=== PATIENT | female | born 2005 | race Caucasian/White ===

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

== ENCOUNTER 2024-01-05 19:40 | Emergency (ER) | payer MEDICAID ==
[~2024-01-05] VITALS: Ht 165.1 cm; Wt 77.0 kg
[~2024-01-05 19:40] MED LIST changes: +CIPR1SUS8 OT
[2024-01-05 22:06] LABS: Urine Amorphous Crystal FEW /hpf (None Seen); Urine Bacteria FEW /hpf (None Seen); Urine Blood 1+ /uL (Negative); Urine Clarity Turbid (Clear); Urine Color Yellow (Yellow); Urine Mucus FEW (None Seen); Urine Protein, UAD TRACE (Negative); Urine Specific Gravity 1.027 (1.001-1.035); Urine Urobilinogen Normal (Negative); Urine WBC 24 /hpf (0 - 5)
[2024-01-05 22:12] LABS: Basophils # (auto) 0.1 10 ^3/uL (0-0.2); Basophils % (auto) 0.8 % (0.0-2.0); Eosinophils # (auto) 0.1 10 ^3/uL (0-0.8); Hematocrit 40.9 % (36.0-46.0); Hemoglobin 13.4 g/dL (12.2-16.2); Lymphocytes # (auto) 3.5 10 ^3/uL (0.4-5.4); Lymphocytes % (auto) 37.1 % (10.0-50.0); Mean Corpuscular Hemoglobin 28.7 pg (28.0-32.0); Mean Corpuscular Hgb Conc. 32.7 g/dL (32.0-36.0); Mean Corpuscular Volume 87.7 fL (80.0-100.0); Monocytes # (auto) 0.7 10 ^3/uL (0-1.3); Neutrophils # (auto) 5.1 10 ^3/uL (1.6-8.6); Neutrophils % (auto) 54.1 % (37.0-80.0); Red Blood Cells 4.67 10^6/uL (4.0-5.20); White Blood Cell 9.4 10^3/uL (4.4-10.8)
[2024-01-05 22:27] LABS: Alanine Aminotransferase 43 U/L (7-40); Albumin 4.5 g/dL (3.2-4.8); Alkaline Phosphatase 59 U/L (46-116); Anion Gap 6 (5-15); Aspartate Aminotransferase 18 U/L (13-40); BUN/Creatinine Ratio 15.3 (10.0-20.0); Bilirubin, Total 0.5 mg/dL (0.2-1.0); Blood Urea Nitrogen 11 mg/dL (9-23); Carbon Dioxide 27 mmol/L (20-30); Chloride 106 mmol/L (98-107); Glucose 81 mg/dL (74-106); Lipase 31 U/L (12-53); Potassium 3.9 mmol/L (3.5-5.1); Sodium 139 mmol/L (136-145); Total Protein 7.3 g/dL (5.7-8.2)
[2024-01-06] MEDS ORDERED: POLY335015 PO (00:18)
[2024-01-06] MEDS ORDERED: DICY10CA PO (00:18)
[2024-01-06] MEDS ORDERED: ZOFR4T PO (00:18)
[2024-01-06] MEDS ORDERED: AUG875T PO (00:18)
[2024-01-06] MEDS ORDERED: FAMO20TA10 PO (00:18)
[2024-01-06 00:25] VITALS: BP 111/71; PULSE 76; RESP 14; O2SAT 98
[2024-01-06] MEDS: ONDANSETRON ODT 4 MG TAB PO ONE (00:37)
[2024-01-06] MEDS: HYDROcodone-ACET 5/325MG TAB PO ONE (00:38)
[2024-01-06] MEDS: PANTOPRAZOLE 40 MG/10 ML VIAL INJ IV ONE (00:38)
[2024-01-06] MEDS: cefTRIAXone 1GM/50ML D5W 50 ML IV ONE (00:38)
[2024-01-06] MEDS: SODIUM CHLORIDE 0.9% 1,000 ML IV ONE (00:38)
== END 2024-01-06 00:36 | disposition home or self-care (01) ==
LOC: ER 19:40
DX: N39.0 Urinary tract infection, site not specified (principal); K29.70 Gastritis, unspecified, without bleeding; K57.90 Diverticulosis of intestine, part unspecified, without perforation or abscess without bleeding; K59.00 Constipation, unspecified; Z32.02 Encounter for pregnancy test, result negative
CPT/HCPCS: 36415; 74176; 80053; 81001; 81025; 83690; 85025

== ENCOUNTER 2024-06-25 11:59 | Emergency (ER) | payer MEDICAID ==
[~2024-06-25] VITALS: Ht 154.9 cm; Wt 79.9 kg
[~2024-06-25 11:59] MED LIST changes: +FAMO20TA10 PO; +POLY335015 PO; +ZOFR4T PO
[2024-06-25] MEDS ORDERED: AUG875T PO (13:39)
[2024-06-25] MEDS ORDERED: NAP500T GT (13:39)
[2024-06-25] MEDS: cefTRIAXone W LIDOCAINE 1 GM IM IM ONE (14:11)
[2024-06-25] MEDS: cefTRIAXone SOD 1,000 MG VL IM ONE (14:18)
[2024-06-25 14:22] VITALS: BP 138/83; PULSE 109; RESP 17; TEMP 98.1; O2SAT 98
== END 2024-06-25 14:23 | disposition home or self-care (01) ==
LOC: ER 11:59
DX: L03.115 Cellulitis of right lower limb (principal); Z79.1 Long term (current) use of non-steroidal anti-inflammatories (NSAID); Z79.52 Long term (current) use of systemic steroids
CPT/HCPCS: 96372; 99283; J0696

== ENCOUNTER 2024-07-02 11:22 | Emergency (ER) | payer MEDICAID ==
[~2024-07-02] VITALS: Ht 154.9 cm; Wt 83.9 kg
[~2024-07-02 11:22] MED LIST changes: +NAP500T GT
[2024-07-02 12:02] VITALS: BP 113/67; PULSE 116; RESP 16; TEMP 97.5; O2SAT 98
[2024-07-02 12:45] LABS: Basophils # (auto) 0.1 10 ^3/uL (0-0.2); Basophils % (auto) 0.8 % (0.0-2.0); Eosinophils # (auto) 0.2 10 ^3/uL (0-0.8); Hematocrit 41.3 % (36.0-46.0); Hemoglobin 13.9 g/dL (12.2-16.2); Lymphocytes # (auto) 2.4 10 ^3/uL (0.4-5.4); Mean Corpuscular Hemoglobin 29.8 pg (28.0-32.0); Mean Corpuscular Hgb Conc. 33.6 g/dL (32.0-36.0); Mean Corpuscular Volume 88.6 fL (80.0-100.0); Monocytes # (auto) 0.5 10 ^3/uL (0-1.3); Monocytes % (auto) 5.8 % (0.0-12.0); Neutrophils # (auto) 5.3 10 ^3/uL (1.6-8.6); Neutrophils % (auto) 62.4 % (37.0-80.0); Nucleated Red Blood Cells % 0.1 %; Platelet Count (auto) 379 10^3/uL (140-450); Red Blood Cells 4.66 10^6/uL (4.0-5.20); Red Cell Distribution Width 13.5 % (11.8-14.3); White Blood Cell 8.4 10^3/uL (4.4-10.8)
[2024-07-02 12:54] LABS: Chloride 109 mmol/L (98-107); Potassium 4.4 mmol/L (3.5-5.1); Sodium 139 mmol/L (136-145)
[2024-07-02 12:55] LABS: Anion Gap 5 (5-15); Carbon Dioxide 25 mmol/L (20-31)
[2024-07-02 12:56] LABS: Calcium 9.6 mg/dL (8.7-10.4)
[2024-07-02 13:00] LABS: Glucose 85 mg/dL (74-106)
[2024-07-02 13:01] LABS: BUN/Creatinine Ratio 11.8 (10.0-20.0); Blood Urea Nitrogen 9 mg/dL (9-23)
[2024-07-02] MEDS ORDERED: NAP500T GT (14:07)
== END 2024-07-02 14:19 | disposition home or self-care (01) ==
LOC: ER 11:22
DX: M79.671 Pain in right foot (principal); F41.9 Anxiety disorder, unspecified; Z79.52 Long term (current) use of systemic steroids
CPT/HCPCS: 36415; 73630; 80048; 85025; 85379

== ENCOUNTER 2024-12-26 10:43 | Emergency (ER) | payer MEDICAID ==
[~2024-12-26] VITALS: Ht 165.1 cm; Wt 88.4 kg
--- NOTE | 2024-12-26 11:03 | ED.PDOC ---
GI ASSESSMENT HPI Comments 19 year old female brought in by mother presents to the ED with chief complaint of abdominal pain. Patient reports that she has been experiencing 10/10 epigastric abdominal pain with associated N/V/D and nose bleed for the past 3 days. Patient relays that her pain radiates to her back at times. Patient denies any fever, chills, dizziness, dysuria, hematuria, or hematemesis. Time Seen by MD: 11:00 Primary Care Provider: [facility] Reviewed Notes: Nurses Notes, Medications, Allergies Allergies: Coded Allergies: NO KNOWN ALLERGIES (Unverified , 09/03/17) Home Meds Active Scripts Ciprofloxacin Hcl (Cipro) 500 Mg Tab, 1 TAB PO BID, #14 TAB Prov:NINA SCHAFFER MD 12/26/24 Ondansetron Odt 4MG Tab (ZOFRAN PO) 4 Mg Tb, 4 MG PO Q8HP PRN for 5 Days, #15 TAB ODT TAB-DISSOLVE IN MOUTH, THEN SWALLOW Prov:NINA SCHAFFER MD 12/26/24 Naproxen (NAPROSYN TABLET) 500 Mg Tb, 500 MG GT BID for 10 Days, #20 TAB Prov:PRASAD STERLING NP 07/02/24 Amoxicillin & Pot Clavulanate (AUGMENTIN TABLET) 875 Mg Tb, 875 MG PO BID for 10 Days, #20 TAB Prov:CHAPIS GAMBLE MD 06/25/24 Polyethylene Glycol 3350 (Miralax) 17 Gm Pow, 17 GM PO DAILY, #12 EA as needed for constipation Prov:SAVI OLEA SKIN DIVER 01/06/24 Ondansetron Odt 4MG Tab (ZOFRAN PO) 4 Mg Tb, 1 TAB PO Q8HPRN PRN, #10 TAB as needed for nausea vomiting ODT TAB-DISSOLVE IN MOUTH, THEN SWALLOW Prov:CHANDAN OLEAA Q SKIN DIVER 01/06/24 Famotidine (PEPCID TABLET) 20 Mg Tb, 1 TAB PO BID for 30 Days, #60 TAB Prov:CHANDAN OLEAA Q SKIN DIVER 01/06/24 Amoxicillin & Pot Clavulanate (AUGMENTIN TABLET) 875 Mg Tb, 1 TAB PO BID for 10 Days, #20 TAB Prov:SAVI OLEA Q SKIN DIVER 01/06/24 Dicyclomine Hcl (BENTYL CAPSULE) 10 Mg Cp, 2 CAP PO TID, #30 CAP as needed for abdominal cramping Prov:SAVI OLEA SKIN DIVER 01/06/24 Ciprofloxacin-Dexamethasone (Ciprofloxacin/Dexamethaso 0.3-0.1 %) 1 Noa Noa, 4 DROP OT BID for 7 Days, #1 BOTTLE 0 Refills Prov:JOANNE MCFADDEN 12/07/23 Ibuprofen (Ibuprofen) 800 Mg Tab, 1 TAB PO TID PRN, #30 TAB 0 Refills Prov:JOANNE MCFADDEN 12/07/23 Prednisone (Prednisone) 20 Mg Tab, 60 MG PO DAILY, #15 TAB Prov:MIKE PAGAN 11/11/23 Ibuprofen (Ibuprofen) 800 Mg Tab, 1 TAB PO TID, #24 TAB Prov:MIKE PAGAN 11/11/23 Amoxicillin & Pot Clavulanate (AUGMENTIN TABLET) 875 Mg Tb, 875 MG PO BID for 10 Days, #20 TAB Prov:MIKE PAGAN 11/11/23 Dicyclomine Hcl (BENTYL CAPSULE) 10 Mg Cp, 20 MG PO TID, #30 CAP Prov:MIKE PAGAN 02/06/23 Sulfamethoxazole W/Trimethopri (Bactrim Ds Tablet) 1 Tab Tb, 1 TAB PO BID for 7 Days, #14 TAB Prov:MIKE PAGAN 02/06/23 Information Source: Patient, Relative (Mother) Mode of Arrival: Ambulatory Timing: Days Duration: Since onset Prehospital treatment: None Quality: Sharp Vomitus: Watery Stool: Watery Recent: None Recent Hx of: None Pain Location: Epigastric Modifying Factors: Nothing Associated sign and symptoms: Nausea, Vomiting, Diarrhea, Abdominal Pain Past Medical History PAST MEDICAL HISTORY: Anxiety Past Medical History (Other): Visual impairment Surgical History: Denies all surgeries POT FISHER History: No Pertinent POT FISHER History Family History Family History: Unknown Social History Smoker: Non-Smoker Alcohol: Denies ETOH Use Drugs: Denies Drug Use Lives In: Home Constitutional: denies: chills, diaphoresis, fatigue, fever, malaise, sweats, weakness, others EENTM: reports: nose bleeding; denies: blurred vision, double vision, ear bleeding, ear discharge, ear drainage, ear pain, ear ringing, eye pain, eye redness, hearing loss, mouth pain, mouth swelling, nasal discharge, nose congestion, nose pain, photophobia, tearing, throat pain, throat swelling, voice changes, others Respiratory: denies: cough, hemoptysis, orthopnea, SOB at rest, shortness of breath, SOB with excertion, stridor, wheezing, others Cardiovascular: denies: chest pain, dizzy spells, diaphoresis, Dyspnea on exertion, edema, irregular heart beat, left arm pain, lightheadedness, palpitat ions, PND, syncope, others Gastrointestinal: reports: abdominal pain, diarrhea, nausea, vomiting; denies: abdomen distended, blood streaked bowels, constipated, dysphagia, difficulty swallowing, hematemesis, melena, poor appetite, poor fluid intake, rectal bleeding, rectal pain, others Genitourinary: denies: abnormal vagina bleeding, burning, dyspareunia, dysuria, flank pain, frequency, hematuria, incontinence, pain, , vagina discharge, urgency, others Neurological: denies: dizziness, fainting, headache, left sided numbness, left sided weakness, numbness, paresthesia, pre-existing deficit, right sided n umbness, right sided weakness, seizure, speech problems, tingling, tremors, weakness, others Musculoskeletal: denies: back pain, gout, joint pain, joint swelling, muscle pain, muscle stiffness, neck pain, others Integumetry: denies: bruises, change in color, change in hair/nails, dryness, laceration, lesions, lumps, rash, wounds, others Allergic/Immunocompromised: denies: Difficulty Healing, Frequent Infections, Hives, Itching, others Hematologic/Lymphatic: denies: anemia, blood clots, easy bleeding, easy bruising, swollen glands, others Endocrine: denies: excessive hunger, excessive sweating, excessive thirst, excessive urination, flushing, intolerance to cold, intolerance to heat, unexplained weight gain, unexplained weight loss, others Psychiatric: denies: anxiety, bipolar disorder, depression, hopeless, panic disorder, schizophrenia, sleepless, suicidal, others All Other Systems: Reviewed and Negative Physical Exam General Appearance: Mild Distress, Obese HEENT: Normal ENT Inspection, Pharynx Normal, TMs Normal Neck: Full Range of Motion, Non-Tender, Normal, Normal Inspection Respiratory: Chest Non-Tender, Lungs Clear, No Accessory Muscle Use, No Respiratory Distress, Normal Breath Sounds Cardiovascular: No Edema, No JVD, No Murmur, No Gallop, Normal Peripheral Pulses, Regular Rate/Rhythm Breast Exam: Deferred Gastrointestinal: Epigastric, No Organomegaly, No Pulsatile Mass, Normal Bowel Sounds, Soft, Tenderness Genitalia: Deferred Pelvic: Deferred Rectal: Deferred Extremities: No calf tenderness, Normal capillary refill, Normal inspection, Normal range of motion, Non-tender, No pedal edema Musculoskeletal : Apperance: Normal Neurologic: Alert, citizenship teacher II-XII nml as Tested, Motor Weakness, Normal Affect, Normal Mood, No Sensory Deficits Cerebellar Function: Normal Reflexes: Normal Skin: Dry, Normal Color, Warm Lymphatic: No Adenopathy Was a procedure done? Was a procedure done?: No GI differential Dx Differential Diagnosis: Appendicitis, Cholangitis, Cholecystitis, Gastritis/PUD, Gastroenteritis, Inflammatory BD, Pancreatitis, Electrolyte Imbalance, Food Poisoning X-Ray, Labs, Meds, VS Vital Signs Date Time Temp Pulse Resp B/P (MAP) Pulse Ox O2 Delivery O2 Flow Rate FiO2 12/26/24 11:08 99.5 136 19 112/74 (87) 96 99.5 Lab Test 12/26/24 11:19 12/26/24 10:35 Range/Units White Blood Count 16.2 H 4.4-10.8 10^3/uL Red Blood Count 4.65 4.0-5.20 10^6/uL Hemoglobin 13.9 12.2-16.2 g/dL Hematocrit 40.3 36.0-46.0 % Mean Corpuscular Volume 86.6 80.0-100.0 fL Mean Corpuscular Hemoglobin 29.8 28.0-32.0 pg Mean Corpuscular Hemoglobin Concent 34.4 32.0-36.0 g/dL Red Cell Distribution Width 12.7 11.8-14.3 % Platelet Count 355 140-450 10^3/uL Mean Platelet Volume 8.3 6.9-10.8 fL Neutrophils (%) (Auto) 88.5 H 37.0-80.0 % Lymphocytes (%) (Auto) 5.1 L 10.0-50.0 % Monocytes (%) (Auto) 6.1 0.0-12.0 % Eosinophils (%) (Auto) 0.1 0.0-7.0 % Basophils (%) (Auto) 0.2 0.0-2.0 % Neutrophils # (Auto) 14.3 H 1.6-8.6 10 ^3/uL Lymphocytes # (Auto) 0.8 0.4-5.4 10 ^3/uL Monocytes # (Auto) 1.0 0-1.3 10 ^3/uL Eosinophils # (Auto) 0 0-0.8 10 ^3/uL Basophils # (Auto) 0 0-0.2 10 ^3/uL Nucleated Red Blood Cells 0.0 % Sodium Level 139 136-145 mmol/L Potassium Level 4.3 3.5-5.1 mmol/L Chloride Level 105 98-107 mmol/L Carbon Dioxide Level 25 20-31 mmol/L Anion Gap 9 5-15 Blood Urea Nitrogen 10 9-23 mg/dL Creatinine 0.71 0.550-1.02 mg/dL Glomerular Filtration Rate Calc 125 >90 mL/min BUN/Creatinine Ratio 14.1 10.0-20.0 Serum Glucose 99 74-106 mg/dL Calcium Level 9.9 8.7-10.4 mg/dL Total Bilirubin 0.6 0.2-1.0 mg/dL Aspartate Amino Transferase (AST) 15 13-40 U/L Alanine Aminotransferase (ALT) 27 7-40 U/L Alkaline Phosphatase 75 46-116 U/L Total Protein 7.2 5.7-8.2 g/dL Albumin 4.8 3.2-4.8 g/dL Lipase 30 12-53 U/L Urine Color Light-yellow Yellow Urine Clarity Clear Clear Urine pH 6.5 5.0-9.0 Urine Specific [place] 1.020 1.001-1.035 Urine Protein Negative Negative Urine Ketones Negative Negative Urine Blood 1+ H Negative /uL Urine Nitrite Negative Negative Urine Bilirubin Negative Negative Urine Urobilinogen Normal Negative mg/dL Urine Leukocyte Esterase 1+ Negative /uL Urine RBC 11 0 - 4 /hpf Urine Microscopic WBC 6 H 0-5 /HPF Urine Squamous Epithelial Cells Few <5 /hpf Urine Bacteria None seen None Seen /hpf Urine Glucose Normal Normal mg/dL Urine Test Negative Negative Gallbladder US indicates: 1. No acute process. The patient's CBC shows a slightly elevated white blood cell count of 16.2 The rest of the CBC and chemistry panel are within normal limits The urine test is positive for UTI The test is negative The patient is being discharged and the patient will follow up with the primary care doctor The patient will return to the emergency department's the condition worsens. Instructions were given to the patient was mother and the patient was discharged on Cipro as well as Zofran Images Reviewed?: Images reviewed and evaluated by me Time of 1ST Reevaluation: 12:21 Reevaluation 1ST: Unchanged Patient Education/Counseling: Diagnosis, Treatment, Prognosis, Need For Follow Up Family Education/Counseling: Diagnosis, Treatment, Prognosis, Need For Follow Up Additional Information -Reviewed patient's previous visit(s): 07/02/24 for rt foot pain - The following tests were ordered, and results were reviewed by me: CBC, CMP, Lipase, UA, Preg urine, Gallbladder US - Additional information was gathered from interviewing the following independent Historian: Mother - I reviewed and agreed with the following test results read by other provider: Gallbladder US - I discussed treatments and results with medical personnel and: patient and mother Comprehensive systems review obtained and negative except for what is stated in the HPI. Departure 1 Departure Time of Disposition: 12:21 Impression: Primary Impression: Acute gastritis Qualified Codes: K29.00 - Acute gastritis without bleeding Additional Impression: Urinary tract infection Qualified Codes: N30.00 - Acute cystitis without hematuria Disposition: 01 HOME / SELF CARE / HOMELESS Condition: Fair e-Prescriptions Ciprofloxacin Hcl (Cipro) 500 Mg Tab 1 TAB PO BID, #14 TAB Prov: NINA SCHAFFER MD 12/26/24 Ondansetron Odt 4MG Tab (ZOFRAN PO) 4 Mg Tb 4 MG PO Q8HP PRN for 5 Days, #15 TAB ODT TAB-DISSOLVE IN MOUTH, THEN SWALLOW Prov: NINA SCHAFFER MD 12/26/24 Discharged With: Self, Relative (Mother) Critical Care Note Critical Care Time?: No Stability Stability form required: No Heart Score Heart Score: Heart Score Response (Comments) Value History N/A 0 EKG N/A 0 Age N/A 0 Risk Factors N/A 0 Troponin N/A 0 Total 0 I personally scribed for NINA SCHAFFER MD ([email or web address]) on 12/26/24 at 11:03. E lectronically submitted by Percy Hughes ([email or web address]). I personally scribed for NINA SCHAFFER MD ([email or web address]) on 12/26/24 at 11:09. E lectronically submitted by Percy Hughes ([email or web address]). I personally scribed for NINA SCHAFFER MD ([email or web address]) on 12/26/24 at 12:10. E lectronically submitted by Percy Hughes ([email or web address]). NINA SCHAFFER MD Dec 26, 2024 11:03
[2024-12-26 11:08] VITALS: BP 112/74; PULSE 136; RESP 19; TEMP 99.5; O2SAT 96
[2024-12-26] MEDS: ONDANSETRON HCL 4 MG/2 ML VIAL IV ONE (11:15)
[2024-12-26 11:33] LABS: Urine Bacteria None Seen /hpf (None Seen)
[2024-12-26 11:48] LABS: Urine Blood 1+ /uL (Negative); Urine Clarity Clear (Clear); Urine Color Light-Yellow (Yellow); Urine Protein, UAD Negative (Negative); Urine Squamous Epithelial Cell FEW /hpf (<5); Urine Urobilinogen Normal (Negative); Urine WBC 6 /HPF (0-5); Urine pH 6.5 (5.0-9.0)
[2024-12-26 11:49] LABS: Basophils # (auto) 0 10 ^3/uL (0-0.2); Basophils % (auto) 0.2 % (0.0-2.0); Eosinophils # (auto) 0 10 ^3/uL (0-0.8); Eosinophils % (auto) 0.1 % (0.0-7.0); Hematocrit 40.3 % (36.0-46.0); Hemoglobin 13.9 g/dL (12.2-16.2); Lymphocytes # (auto) 0.8 10 ^3/uL (0.4-5.4); Lymphocytes % (auto) 5.1 % (10.0-50.0); Mean Corpuscular Hemoglobin 29.8 pg (28.0-32.0); Mean Corpuscular Hgb Conc. 34.4 g/dL (32.0-36.0); Mean Corpuscular Volume 86.6 fL (80.0-100.0); Monocytes % (auto) 6.1 % (0.0-12.0); Neutrophils # (auto) 14.3 10 ^3/uL (1.6-8.6); Neutrophils % (auto) 88.5 % (37.0-80.0); Platelet Count (auto) 355 10^3/uL (140-450); Red Blood Cells 4.65 10^6/uL (4.0-5.20); Red Cell Distribution Width 12.7 % (11.8-14.3); White Blood Cell 16.2 10^3/uL (4.4-10.8)
[2024-12-26 11:58] LABS: Alanine Aminotransferase 27 U/L (7-40); Albumin 4.8 g/dL (3.2-4.8); Alkaline Phosphatase 75 U/L (46-116); Anion Gap 9 (5-15); Aspartate Aminotransferase 15 U/L (13-40); BUN/Creatinine Ratio 14.1 (10.0-20.0); Bilirubin, Total 0.6 mg/dL (0.2-1.0); Blood Urea Nitrogen 10 mg/dL (9-23); Calcium 9.9 mg/dL (8.7-10.4); Carbon Dioxide 25 mmol/L (20-31); Chloride 105 mmol/L (98-107); Glucose 99 mg/dL (74-106); Lipase 30 U/L (12-53); Potassium 4.3 mmol/L (3.5-5.1); Sodium 139 mmol/L (136-145); Total Protein 7.2 g/dL (5.7-8.2)
--- NOTE | 2024-12-26 12:08 | DVH ---
EXAM: US GALLBLADDER INDICATION: Pain TECHNIQUE: Multiple real-time sonographic images were obtained of the right upper quadrant. COMPARISON: CT abdomen dated 01/05/2024 FINDINGS: The liver demonstrates homogenous echotexture without focal mass lesions. The liver measure s 14.0 cm. There is hepatopedal color doppler flow in the main portal vein. There is no intrahepatic biliary ductal dilatation. The gallbladder is without evidence of stone or sludge. The gallbladder wall measures 0.3 cm. The common bile duct measures 0.4 cm. There is a negative sonographic Orellana's sign. The right kidney measures 10.8 cm. The right kidney is normal in contour, size, and shape. The ech ogenicity is normal. There is no hydronephrosis. The pancreas is not well visualized due to overlying bowel gas. Visualized portions of the aorta and inferior vena cava are unremarkable. No evidence of ascites. IMPRESSION: 1. No acute process. HS:Y
[2024-12-26] MEDS ORDERED: ZOFR4T PO (12:13)
[2024-12-26] MEDS ORDERED: CIPR-173 PO (12:14)
== END 2024-12-26 13:19 | disposition home or self-care (01) ==
LOC: ER 10:43
DX: K29.00 Acute gastritis without bleeding (principal); N39.0 Urinary tract infection, site not specified; F41.9 Anxiety disorder, unspecified; Z79.1 Long term (current) use of non-steroidal anti-inflammatories (NSAID); Z79.52 Long term (current) use of systemic steroids; Z79.899 Other long term (current) drug therapy
CPT/HCPCS: 36415; 76705; 80053; 81001; 81025; 83690; 85025